=== PATIENT | male | born 1985 | race Caucasian/White ===

== ENCOUNTER 2019-10-24 16:57 | Emergency (ER) | payer OTHER ==
[~2019-10-24] VITALS: Ht 170.2 cm; Wt 81.6 kg
[~2019-10-24 16:57] MED LIST: NUCYNTA ER100 MG PO; ONDANSETRON IJ; PEPCID40 MG PO; PRILOSEC20 MG PO; SEROQUEL25 MG PO; WELLBUTRIN XL150 MG PO; ZANTAC25 MG/1 ML; ZOFRAN8 MG PO; ZOLOFT100 MG
[2019-10-24] MEDS ORDERED: DICLOFENAC SODI75 MG PO (17:46)
== END 2019-10-24 18:02 | disposition home or self-care (01) ==
LOC: ER 16:57
DX: S93.401A Sprain of unspecified ligament of right ankle, initial encounter (principal); X50.3XXA Overexertion from repetitive movements, initial encounter; Y93.89 Activity, other specified; Y92.89 Other specified places as the place of occurrence of the external cause; Y99.8 Other external cause status